=== PATIENT | male | born 1965 | race Caucasian/White ===

== ENCOUNTER 2017-07-25 09:20 | Day surgery (SDC) | payer OTHER ==
[2017-07-25] VITALS (13 sets, daily range): BP systolic 93–140; BP diastolic 50–94; PULSE 58–72; RESP 12–27; Ht 162.6 cm; Wt 93.3 kg
[~2017-07-25] VITALS: Ht 162.6 cm; Wt 93.3 kg
[2017-07-25] MEDS ORDERED: OXYC5CAP17 PO (10:00)
[2017-07-25] MEDS ORDERED: SOD CHLORIDE 0.9% 1,000 ML IV SCH (10:00)
[2017-07-25] MEDS ORDERED: CEFAZOLIN 2 GM/50 ML (PMX) 50 ML IVPB ONE (10:00)
[2017-07-25] MEDS ORDERED: HYDROmorphONE (0.2 MG/ML) 10ML SYG IV PRN (12:00)
[2017-07-25] MEDS ORDERED: KETOROLAC 30 MG INJ IV PRN (12:00)
[2017-07-25] MEDS ORDERED: hydrALAzine 20 MG INJ IV PRN (12:00)
[2017-07-25] MEDS ORDERED: LABETALOL HCL 20MG INJ IV PRN (12:00)
[2017-07-25] MEDS ORDERED: FENTAnyl 50 MCG/ML VIAL IV PRN ×3 (12:00)
[2017-07-25] MEDS ORDERED: DIPHENHYDRAMINE 50 MG INJ IV PRN (12:00)
[2017-07-25] MEDS ORDERED: EPHEDrine SULFATE 50 MG/5 ML SYG IV PRN (12:00)
[2017-07-25] MEDS ORDERED: MEPERIDINE 25 MG INJ IV PRN (12:00)
[2017-07-25] MEDS ORDERED: ONDANSETRON 4 MG INJ IV PRN (12:00)
[2017-07-25] MEDS ORDERED: OXYCODONE/ACETAMINOPHEN (5/325) TAB PO PRN ×2 (12:00)
[2017-07-25] MEDS ORDERED: BUPIVACAINE 0.25% (MPF) 30 ML INJ ONE (12:07)
[2017-07-25] MEDS ORDERED: POLYMYXIN/BACITRACIN 1L IRRIG ONE (12:08)
[2017-07-25] MEDS ORDERED: ROCURONIUM 50 MG INJ ONE (12:15)
[2017-07-25] MEDS ORDERED: PROPOFOL 20 ML ONE (12:15)
[2017-07-25] MEDS ORDERED: LIDOCAINE 2% (SDV) 5 ML INJ ONE (12:15)
[2017-07-25] MEDS ORDERED: FENTAnyl 50 MCG/ML VIAL ONE (12:17)
[2017-07-25] MEDS ORDERED: morphine 10 MG INJ ONE (12:19)
[2017-07-25] MEDS ORDERED: CEFAZOLIN 1 GM INJ ONE (12:35)
[2017-07-25] MEDS ORDERED: LABETALOL HCL 20MG INJ ONE (12:45)
[2017-07-25] MEDS ORDERED: SUGAMMADEX SODIUM 200 MG/2 ML VIAL IV ONE (13:10)
--- NOTE | 2017-07-25 13:19 | OPR ---
Date/Time of Note Date/Time of Note DATE: 07/25/17 TIME: 13:14 Operative Report Procedure Date: Jul 25, 2017 Preoperative Diagnosis incarcerated ventral hernia Postoperative Diagnosis same Operation Performed 1. open incarcerated ventral hernia repair cpt code 29117 2. implantation of abdominal mesh cpt code 49387 3. therapeutic injection of subcutaneous marcaine cpt code 34553 Surgeon see signature line Flavoring Oil Filterer: WILTON OQUENDO MD Anesthesia Type: general Estimated Blood Loss: 0 - 10 ml's Specimen: none Grafts/Implants ventralight ST 10 x 15 cm mesh Complications: no Indications This is a 52-year-old male with symptomatic incarcerated ventral hernia. He requests surgical repair. Risks alternatives benefits and percent were discussed the patient. Potential complications including but not limited to bleeding infection mesh infection need for reoperation possibly were discussed the patient. Patient expresses understanding and consents to the operation. Procedure Description Patient is taken to the OR and prepped and draped in usual sterile fashion. Surgical timeout was performed. IV antibiotics were given. Informed local transverse incision is made with a 15 blade. Dissection cautery was carried down to the fascia. The hernia is isolated and bluntly dissected out using a hemostat. The ventral hernia had adherence to the skin which was also divided. Incarcerated hernia was then manually reduced and the fascial edges were freshened in all directions. Approximately 2 cm of fascial edge was freed up on both sides. Some minor lysis of adhesions was performed in order to fully mobilize the fascial edges. Using the ventral ST mesh 10 x 15 cm cut to form this was uses underlay mesh with approximately 3-4 centers of coverage in all directions. This mesh is secured in place with interrupted #1 Prolenes as underlay mesh. The fascia was then closed primarily using #1 Vicryl. Surgical site was hemostatic. The umbilicus was then reimplanted into the midline with interrupted 3-0 Vicryl. The skin was closed using skin bryant. There appears to contains Marcaine was injected throughout the incision site. Dry dressings were applied. Alvarado ESTEVEZ Jul 25, 2017 13:19
[2017-07-25] MEDS ORDERED: HYDROCODONE/APAP (5/325) TAB PO ONE (13:30)
[2017-07-25] MEDS: HYDROmorphONE (0.2 MG/ML) 10ML SYG IV PRN ×4 (13:35→14:05)
== END 2017-07-25 15:46 | disposition home or self-care (01) ==
LOC: SDS 09:20
PROVIDERS: ATTEND Surgery
DX: K43.6 Other and unspecified ventral hernia with obstruction, without gangrene (principal); I10 Essential (primary) hypertension
CPT/HCPCS: 49561; 49568; C1781; J0690; J1170; J1200; J1885; J2175; J2270; J2405; J3010; Z7512; Z7610